=== PATIENT | female | born 1975 | race American Indian/Alaskan Native ===

== ENCOUNTER 2017-05-18 03:08 | Emergency (ER) | payer OTHER ==
[2017-05-18 03:16] VITALS: BP 124/72; PULSE 90; RESP 16; TEMP 98.1; O2SAT 100
--- NOTE | 2017-05-18 03:54 | ED PDOC ---
Arrival/HPI - General Chief Complaint: Abdominal Pain Time Seen by Provider: 05/18/17 03:45 Historian: Patient - History of Present Illness Narrative History of Present Illness (Text): 05/18/17 03:51 Nicolás Alvarez is a 42 year old female, with no significant past medical history past medical history, who presents to the Emergency department complaining of burning epigastric discomfort since yesterday.Some slight dizziness earlier none now. Patient denies any fever, chills, chest pain, shortness of breath, nausea, vomiting, diarrhea, urinary symptoms, back pain, neck pain, headache, or any other complaints. Time/Duration: Other (yesterday) Symptom Onset: Gradual Symptom Course: Unchanged Quality: Burning Activities at Onset: Light Context: Home Past Medical History - Provider Review Nursing Documentation Reviewed: Yes - Psychiatric Hx Substance Use: No Family/Social History - Physician Review Nursing Documentation Reviewed: Yes Family/Social History: Unknown Family HX Smoking Status: Never Smoked Hx Alcohol Use: No Hx Substance Use: No Allergies/Home Meds Allergies/Adverse Reactions: Allergies No Known Allergies Allergy (Verified 05/18/17 03:12) Review of Systems - Physician Review All systems were reviewed & negative as marked: Yes - Review of Systems Constitutional: Normal. absent: Fevers Eyes: Normal ENT: Normal Respiratory: Normal. absent: SOB, Cough Cardiovascular: Normal. absent: Chest Pain Gastrointestinal: Abdominal Pain. absent: Diarrhea, Nausea, Vomiting Genitourinary Female: Normal. absent: Dysuria, Frequency, Hematuria, Urine Output Changes Musculoskeletal: Normal. absent: Back Pain, Neck Pain Skin: Normal. absent: Rash Neurological: Dizziness. absent: Headache Endocrine: Normal Hemo/Lymphatic: Normal Psychiatric: Normal Physical Exam Vital Signs Reviewed: Yes Vital Signs Temp Pulse Resp BP Pulse Ox 05/18/17 03:12 98.1 F 90 16 124/72 100 Temperature: Afebrile Blood Pressure: Normal Pulse: Regular Respiratory Rate: Normal Appearance: Positive for: Well-Appearing, Non-Toxic, Comfortable Pain Distress: None Mental Status: Positive for: Alert and Oriented X 3 - Systems Exam Head: Present: Atraumatic, Normocephalic Pupils: Present: PERRL Extroacular Muscles: Present: EOMI Conjunctiva: Present: Normal Mouth: Present: Moist Mucous Membranes Neck: Present: Normal Range of Motion Respiratory/Chest: Present: Clear to Auscultation, Good Air Exchange. No: Respiratory Distress, Accessory Muscle Use Cardiovascular: Present: Regular Rate and Rhythm, Normal S1, S2. No: Murmurs Abdomen: Present: Normal Bowel Sounds. No: Tenderness, Distention, Peritoneal Signs Back: Present: Normal Inspection Upper Extremity: Present: Normal Inspection. No: Cyanosis, Edema Lower Extremity: Present: Normal Inspection. No: Edema Neurological: Present: GCS=15, CN II-XII Intact, Speech Normal Skin: Present: Warm, Dry, Normal Color. No: Rashes Psychiatric: Present: Alert, Oriented x 3, Normal Insight, Normal Concentration Medical Decision Making ED Course and Treatment: 05/18/17 03:51 Impression: 42 year old female complaining of burning epigastric discomfort and dizziness since yesterday. Differential Diagnosis included but are not limited to: Plan: -- EKG -- Chest X-ray -- Labs, cardiac enzymes -- Reassess and disposition Progress Notes: 05/18/17 04:11 Reviewed EKG, NSR at [address]-segment elevations or depressions, no T-wave inversions, normal intervals. - Lab Interpretations Lab Results: 05/18/17 04:05 05/18/17 04:05 Lab Results 05/18/17 04:05: WBC 7.5, RBC 4.04, Hgb 10.8 L, Hct 33.5 L, MCV 82.9, MCH 26.7, MCHC 32.2, RDW 14.7 H, Plt Count 317, MPV 9.6 05/18/17 04:05: Sodium 136, Potassium 3.4 L, Chloride 102, Carbon Dioxide 28, Anion Gap 9 L, BUN 12, Creatinine 0.8, Est GFR ( Amer) > 60, Est GFR (Non -Af Amer) > 60, Random Glucose 106, Calcium 9.2, Total Bilirubin 1.1, AST 25, ALT 26, Alkaline Phosphatase 73, Lactate Dehydrogenase 410, Total Creatine Kinase 185, Troponin I < 0.01, Total Protein 7.2, Albumin 4.0, Globulin 3.2, Albumin/Globulin Ratio 1.2 05/18/17 04:05: PT 12.8 H, INR 1.16 H, APTT 29.6 I have reviewed the lab results: Yes - RAD Interpretation Radiology Orders: 05/18/17 03:52 CHEST PORTABLE [RAD] Stat - EKG Interpretation Interpreted by ED Physician: Yes Type: 12 lead EKG - Medication Orders Current Medication Orders: Discontinued Medications Famotidine (Pepcid) 20 mg IVP STAT STA Stop: 05/18/17 04:38 Last Admin: 05/18/17 05:01 Dose: 20 mg IVP Administration Document 05/18/17 05:01 ERICK (Rec: 05/18/17 05:02 ERICK [id number]) Charges for Administration # of IVP Administrations 1 - Scribe Statement The provider has reviewed the documentation as recorded by the Scribe Brenda Schaefer Provider Scribe Attestation: All medical record entries made by the Scribe were at my direction and personally dictated by me. I have reviewed the chart and agree that the record accurately reflects my personal performance of the history, physical exam, medical decision making, and the department course for this patient. I have also personally directed, reviewed, and agree with the discharge instructions and disposition. Disposition/Present on Arrival - Present on Arrival Any Indicators Present on Arrival: No History of DVT/PE: No History of Uncontrolled Diabetes: No Urinary Catheter: No History of Decub. Ulcer: No History Surgical Site Infection Following: None - Disposition Have Diagnosis and Disposition been Completed?: Yes Diagnosis: Gastritis Disposition: HOME/ ROUTINE Disposition Time: 06:44 Patient Plan: Discharge Condition: GOOD Discharge Instructions (ExitCare): Gastritis (ED) Additional Instructions: Avoid caffeinated beverages/no spicy foods/bland diet next few days/take meds as prescribed/follow up with your doctor this week Prescriptions: Pantoprazole [Protonix] 40 mg PO DAILY #14 ect Referrals: Consuelo Ann MD [Primary Care Provider] - Follow up with primary Forms: [employer] (Gambian)
[2017-05-18 04:44] LABS: ALB/GLOB RATIO 1.2 (1.1-1.8); ALKALINE PHOSPHATASE 73 U/L (38-126); ALT/SGPT 26 U/L (7-56); AST/SGOT 25 U/L (14-36); BILIRUBIN,TOTAL 1.1 mg/dL (0.2-1.3); BLOOD UREA NITROGEN 12 mg/dL (7-21); CALCIUM 9.2 mg/dL (8.4-10.5); CARBON DIOXIDE 28 mmol/L (21-33); CHLORIDE 102 mmol/L (98-107); GFR AFRICAN-AMERICAN > 60; GLUCOSE,RANDOM 106 mg/dL (70-110); POTASSIUM 3.4 mmol/L (3.6-5.0); SODIUM 136 mmol/L (132-148); TOTAL PROTEIN 7.2 g/dL (5.8-8.3)
[2017-05-18 04:49] LABS: INR 1.16 (0.93-1.08); PARTIAL THROMBOPLASTIN TIME 29.6 Seconds (25.1-36.5)
[2017-05-18 04:54] LABS: HEMATOCRIT 33.5 % (36.0-48.0); MEAN CELL VOLUME 82.9 fl (80.0-105.0); MEAN CORPUSCULAR HEMOGLOBIN 26.7 pg (25.0-35.0); MEAN CORPUSCULAR HGB CONC 32.2 g/dl (31.0-37.0); MEAN PLATELET VOLUME 9.6 fl (7.0-11.0); RED CELL DISTRIBUTION WIDTH 14.7 % (11.5-14.5); WHITE BLOOD COUNT 7.5 10^3/ul (4.5-11.0)
[2017-05-18 04:55] LABS: TROPONIN I < 0.01 ng/mL
--- NOTE | 2017-05-18 08:26 | RAD ---
HISTORY: pain COMPARISON: No prior. FINDINGS: LUNGS: No active pulmonary disease. PLEURA: No significant pleural effusion identified, no pneumothorax apparent. CARDIOVASCULAR: Normal. OSSEOUS STRUCTURES: No significant abnormalities. VISUALIZED UPPER ABDOMEN: Normal. OTHER FINDINGS: None. IMPRESSION: No active disease.
--- NOTE | 2017-05-18 10:51 | CARD ---
APPROVED REPORT EKG Measurement Heart [id number] <Conclusion> Normal sinus rhythm Normal ECG
== END 2017-05-18 06:59 | disposition home or self-care (01) ==
LOC: ED 03:08
DX: K29.70 Gastritis, unspecified, without bleeding (principal)